=== PATIENT | male | born 1980 | race Caucasian/White ===

== ENCOUNTER → 2018-05-07 | Outpatient (CLI) | payer BC ==
[~2018-05-07] MED LIST: NO HOME MEDICATIONS; NORCO 325 MG-51 TAB PO
== END ==
LOC: COL.RAD 05-03 12:45
DX: N18.4 Chronic kidney disease, stage 4 (severe) (principal); N13.30 Unspecified hydronephrosis; N28.1 Cyst of kidney, acquired